=== PATIENT | male | born 1965 | race African-American/Black ===

== ENCOUNTER 2018-06-23 10:06 | Emergency (ER) | payer OTHER ==
[2018-06-23] MEDS: BUPIVACAINE 0.25%/EPI (SDV) 30 ML INJ INJ (11:37)
[2018-06-23] MEDS: BUPIVACAINE 0.25% (MPF) 10 ML 10 ML VIAL INJ (11:38)
== END 2018-06-23 12:16 | disposition home or self-care (01) ==
LOC: FTE 10:06
DX: M62.830 Muscle spasm of back (principal); F17.210 Nicotine dependence, cigarettes, uncomplicated; E03.9 Hypothyroidism, unspecified
CPT/HCPCS: 20552; 99283-25